=== PATIENT | male | born 1995 | race Caucasian/White ===

== ENCOUNTER 2017-01-29 18:44 | Emergency (ER) | payer OTHER ==
[2017-01-29 19:08] LABS: BASOPHIL COUNT 0.1 K/uL (0-0.1); EOSINOPHIL (%) 0.7 % (0-5); EOSINOPHIL COUNT 0.1 K/uL (0-0.3); HEMATOCRIT 45.6 % (38.0-50.0); IMMATURE GRANULOCYTE (%) 0.5 % (0.0-0.7); IMMATURE GRANULOCYTE COUNT 0.1 K/uL; INSTRUMENT ABS NEUTROPHIL CT 14.5 K/uL; LYMPHOCYTE COUNT 1.5 K/uL (1.0-2.8); MCHC 33.1 G/DL (30.0-36.0); MCV 84.4 FL (86-99); MEAN PLAT.VOLUME 9.8 uM^3 (9.0-12.4); MONOCYTE (%) 7.1 % (3-12); MONOCYTE COUNT 1.2 K/uL (0-0.8); NEUTROPHIL (%) 82.9 % (45-76); NEUTROPHIL COUNT 14.5 K/uL (1.8-6.4); PLATELET COUNT 288 K/uL (156-360); RBC DIS.WIDTH-CV 12.5 % (11.8-14.6); WHITE BLOOD COUNT 17.4 K/uL (4.1-10.2)
[2017-01-29 19:21] LABS: AMYLASE 69 IU/L (1-118); CHLORIDE 108 mEq/L (99-109); POTASSIUM 4.2 mEq/L (3.7-5.4); SODIUM 143 mEq/L (136-147)
[2017-01-29 19:23] LABS: GLUCOSE 91 mg/dL (70-99)
[2017-01-29 19:24] LABS: ANION GAP 10 MEQ/L (2-14)
[2017-01-29 19:26] LABS: SERUM ETHYL ALCOHOL < 10 mg/dL
[2017-01-29 19:27] LABS: GFR ESTIMATE (CALCULATED) > 59 mL/min/; UREA NITROGEN (BUN) 18 mg/dL (9-23)
[2017-01-29 19:29] LABS: LIPASE 15 U/L (1.0-51.0)
[2017-01-29] MEDS ORDERED: TYLENOL WITH C1 EACH PO (20:33)
== END 2017-01-29 21:15 | disposition left against medical advice (07) ==
LOC: TRA 18:44
PROVIDERS: Emergency Medicine
PROC: 2W3RX1Z Immobilization of Left Lower Leg using Splint (ICD-10-PCS; principal; 2017-01-29)
DX: S42.001A Fracture of unspecified part of right clavicle, initial encounter for closed fracture (principal); S09.90XA Unspecified injury of head, initial encounter; V28.4XXA Motorcycle driver injured in noncollision transport accident in traffic accident, initial encounter; S92.322A Displaced fracture of second metatarsal bone, left foot, initial encounter for closed fracture; S99.922A Unspecified injury of left foot, initial encounter
CPT/HCPCS: 70450; 71260; 72125; 72129; 72132; 73030; 73610; 73630; 74177; 80048; 81003; 82150; 83690; 85025; 86900; 86901; 99281; 99284; G0480; J2270